=== PATIENT | female | born 1950 | race Caucasian/White ===

== ENCOUNTER → 2017-11-28 | Outpatient (CLI) | payer MEDICARE, OTHER ==
[~2017-11-28] MED LIST: CONTRAST GIVEN MC
[2017-11-28] MEDS: IOHEXOL 300 MG/ML 100ML VIAL. IV ×2 (15:05)
[2017-11-28] MEDS: IOHEXOL 240 MG/ML 50ML VIAL. PO ×2 (15:05)
[2017-11-28 15:46] LABS: ISTAT CREATININE 0.7 mg/dL (0.6-1.1)
== END | disposition home or self-care (01) ==
LOC: KCIC CT 13:39
DX: K76.89 Other specified diseases of liver (principal); K52.9 Noninfective gastroenteritis and colitis, unspecified; I70.0 Atherosclerosis of aorta
CPT/HCPCS: 74178; 82565; Q9966; Q9967